=== PATIENT | male | born 1960 | race African-American/Black ===

== ENCOUNTER 2020-12-16 06:08 | Inpatient (IN) | payer MEDICAID ==
[2020-12-16] VITALS (50 sets, daily range): BP systolic 78–148; BP diastolic 49–112
[~2020-12-16] VITALS: Ht 182.9 cm; Wt 83.5 kg
--- NOTE | ~2020-12-16 | HEMODYNAMI ---
PATIENT:RAHUL ENGLE JR MEDICAL RECORD: [id number] : 58 LOCATION:[facility] [address] [facility]# [id number] ADMISSION DATE: 12/16/20 Generatedon:114:30 Patient name: RAHUL ENGLE Patient #: [id number] SSN: [id number] : 1960 Date of study: 12/19/2020 Page: Of Hemodynamic Procedure Report Patient Data Patient Demographics Procedure consent was obtained First Name: RAHUL Gender: Male Last Name: KADIE Suffix: Patient #: [id number] : 1960 Age: 60 year(s) SSN: [id number] Race: Black Additional ID: [id number] Contact details [address]: [address] [place] [address] [place] State: [place] City: [place] Zip code: [address] Past Medical History Allergies: No known allergies Admission Admission Data Admission Date: 12/16/2020 Admission Time: 7:19 Arrival Date: 12/19/2020 Arrival Time: 0:00 Admit Source: Other Insurance Payor: Medicaid Room #: D.2112 [facility] #: [id number] Height (in.): 72 BSA: 2.06 (m2) Height (cm.): 182.88 BMI: 25.12 (kg/m2) Weight (lbs.): 185.19 Weight (kg.): 84 Lab Results Lab Result Date: 12/19/2020 Lab Result Time: 0:00 Biochemistry Name Units Result Min Max BUN mg/dl 11 --(-*--)-- 7 18 CK-MB ng/ml 6.8 --(----)-* 0 3.6 Creatinine mg/dl 1.5 --(----)-* 0.6 1.3 eGFR ml/min 51 *-(----)-- 90 120 NONAFRICAN Troponin l ng/ml 2.11 --(----)-* 0 0.06 CBC Name Units Result Min Max Hematocrit % 37.7 *-(----)-- 42 54 Hemoglobin g/dl 11.9 *-(----)-- 13.5 17.5 Procedure Procedure Types Cath Procedure Sedation Charges Moderate Sedation 10-24 minutes PCI Procedure Coronary Stent Coronary Stent Initial Hemochron ACT Test Procedure Description Procedure Date Procedure Date: 12/19/2020 Procedure Start Time: 14:06 Procedure End Time: 14:29 Procedure Staff Name Function Hunter Tian MD Performing Physician Trinity Cortez RT Monitor Fredy Phan RN Nurse Domonique Caceres RT Scrub Procedure Data Cath Procedure Fluoroscopy Diagnostic fluoroscopy Total fluoroscopy Time: 5.6 time: 5.6 min min Diagnostic fluoroscopy Total fluoroscopy dose: 461 dose: 461 mGy mGy Contrast Material Contrast Material Type Amount (ml) Isovue 370 62 Entry Location Entry Primary Successful Side Size Upsize Upsize Entry Closure Succes sful Closure Location (Fr) 1 (Fr) 2 (Fr) Remarks Device Remarks Femoral Right 6 Fr Exoseal artery Short Estimated blood loss: 10 ml Procedure Complications No complications Procedure Medications Medication Administration Route Dosage 0.9% NaCl I.V. 100 ml/hr Oxygen etCO2 Nasal cannula 2 l/min Heparin Flush Bag added to field 2 bags (1000units/500ml NS) Lidocaine 2% added to field 20 Versed I.V. 2 mg Fentanyl I.V. 50 mcg Heparin Bolus I.V. 5000 units Hemodynamics Rest BSA: 2.06 (m2) HGB: 11.9 (g/dl) O2 Consumption: Estimated: 251.63 (ml/min) O2 Co nsumption indexed: Estimated:122.15 (ml/min/m) Heart Rate: 83 (bpm) Snapshots Pre Cath Intra NCS Post Cath Vital Signs Time Heart Resp SPO2 etCO2 NIBP (mmHg) Rhythm Pain Sedation Rate (ipm) (%) (mmHg) Status Level (bpm) 13:55:47 81 17 97 31.2 109/76(98) NSR 0 (11) 10(A) , No pain 13:59:30 103 21 97 28.2 119/92(104) NSR 0 (11) 10(A) , No pain 14:03:13 102 23 99 32.7 120/94(106) NSR 0 (11) 10(A) , No pain 14:07:05 76 21 99 29.7 106/74(97) NSR 0 (11) 10(A) , No pain 14:10:50 82 26 98 23.8 115/82(94) NSR 0 (11) 10(A) , No pain 14:15:02 80 29 98 12.6 115/83(96) NSR 0 (11) 10(A) , No pain 14:18:51 83 29 100 32.7 101/80(92) NSR 0 (11) 10(A) , No pain 14:23:01 78 16 100 31.2 111/86(97) NSR 0 (11) 10(A) , No pain 14:26:49 77 26 100 22.3 108/79(89) NSR 0 (11) 10(A) , No pain 14:30:36 78 35 100 25.2 102/80(86) NSR 0 (11) 10(A) , No pain Medications Time Medication Route Dose Verified Delivered Reason Notes Effectiveness by by 13:57:22 0.9% NaCl I.V. 100 Fredy Fredy Per physician ml/hr Emilie Phan RN RN 13:57:31 Oxygen etCO2 2 Fredy Fredy for low 02 sats Nasal l/min Emilie Phan cannula RN RN 13:57:43 Heparin Flush added 2 Fredy Fredy used for Bag to bags Emilie Phan procedure (1000units/500ml RN RN NS) 13:57:52 Lidocaine 2% added 20ml Fredy Fredy for local to vial Emilie Phan anesthetic field HOLLAND RN 14:07:02 Versed I.V. 2 mg Fredy Fredy for sedation Emilie Phan RN RN 14:07:09 Fentanyl I.V. 50 Fredy Fredy for sedation mcg Emilie Phan RN RN 14:12:18 Heparin Bolus I.V. 5000 Fredy Fredy for units Emilie Phan anticoagulation RN piler Log Time Note 13:27:08 Patient Height : 72 inches 13:27:08 Patient Weight : 185.19 lbs 13:31:58 Diagnostic Cath Status : Urgent 13:35:33 Lab Result : Troponin l 2.11 ng/ml 13:35:33 Lab Result : eGFR NONAFRICAN 51 ml/min 13:35:33 Lab Result : Hemoglobin 11.9 g/dl 13:35:33 Lab Result : BUN 11 mg/dl 13:35:33 Lab Result : Creatinine 1.5 mg/dl 13:35:33 Lab Result : CK-MB 6.8 ng/ml 13:35:33 Lab Result : Hematocrit 37.7 % 13:35:40 Arrival Date: 12/19/2020 12:00:00 AM 13:35:41 Admit Source: Other 13:35:53 Insurance Payor : Medicaid 13:37:04 ACC Patient presents with Non-STEMI CCS Anginal Class 2--Slight limitation of ordinary activity. 13:37:09 Time tracking: Regular hours (M-F 7:00 - 5:00) 13:37:14 Plan of Care:Hemodynamics will remain stable., Cardiac rhythm will remain stable., Comfort level will be maintained., Respiratory function will remain adequate., Patient/ family verbilizes understanding of procedure., Procedure tolerated without complication., Recovers from procedure without complications.. 13:38:00 Domonique Caceres RT(R) sent for patient. Start room use. 13:40:16 H&P Date Dictated: 12/16/2020 Within 30 days and on chart.. 13:40:17 Pre-procedure instructions explained to patient. 13:40:18 Pre-op teaching completed and patient verbalized understanding. 13:40:19 Family unavailable. 13:40:21 Patient NPO since Midnight. 13:40:30 Patient allergic to No known allergies 13:40:36 Lab results completed and on chart. 13:40:40 Stress Test: no; N/A ? 13:40:44 Alarms reviewed by R. N. 13:40:45 Sharps counted by scrub and verified by R.N. 13:42:21 Patient received from Med II to CCL 2 Alert and oriented. Tansferred to table in Supine position. 13:42:25 Signed procedure consent form obtained from patient. 13:42:26 Warm blankets applied, and edgar hugger turned on for patient comfort. 13:42:26 Correct patient and procedure confirmed by team. 13:42:27 ECG and BP/O2 sat monitors applied to patient. 13:42:28 Full Disclosure recording started 13:42:33 Is the patient allergic to Iodine/contrast media? No. 13:42:34 Was the patient premedicated? Yes 13:43:09 Procedure Status PCI. 13:53:12 Is patient on blood thinner?Yes 13:53:21 ACC The patient was administered the following blood thiners within the last 24 hours: ACCPlavix 13:53:24 Patient diabetic? No. 13:53:26 If diabetic: On Metformin? N/A 13:53:27 ----Pre-sedation anethsthesia assessment.---- 13:53:36 Previous problem with sedation/anesthesia? No ? 13:53:38 Snore? No 13:53:39 Sleep apnea? No 13:53:41 Deviated septum? No 13:53:42 Opens mouth fully? Yes 13:53:43 Sticks out tongue? Yes 13:53:53 Airway obstruction? No ? 13:53:55 Dentures? No ? 13:54:01 Pre procedure: right dorsailis pedis pulse 2+ Normal; easily identifiable; not easily obliterated 13:54:03 Patient pain scale 0/10 ?. 13:54:08 IV patent on arrival in left antecubital with 0.9% NaCl at [facility]. 13:54:13 Right groin area was prepped with chlora-prep and draped in sterile fashion 13:54:16 Use device set Femoral Dx 13:54:17 ACIST Syringe (94170) opened to sterile field. 13:54:18 Bag Decanter (2002S) opened to sterile field. 13:54:19 Medline Cath Pack ([id number]) opened to sterile field. 13:54:20 ACIST Hand Control (92791) opened to sterile field. 13:54:20 ACIST Manifold (39270) opened to sterile field. 13:54:22 Tegaderm 4 x 4 (1626W) opened to sterile field. 13:54:23 EMERALD Guide Wire (532-652) opened to sterile field. 13:54:26 Use device set WICHO PCI 13:54:28 INFLATOR Merit BasixCompak (TC0667) opened to sterile field. 13:54:30 SHEATH 6FR Datto (MGJ781) opened to sterile field. 13:54:56 Peabody OmniWire (41610) opened to sterile field. 13:55:01 Vital chart was started 13:55:05 Baseline sample Acquired. 13:55:19 Rhythm: atrial fibrillation 13:57:22 0.9% NaCl 100 ml/hr I.V. was administered by Fredy Phan RN; Per physician; Verbal order read back and verified. 13:57:31 Oxygen 2 l/min etCO2 Nasal cannula was administered by Fredy Phan RN; for low 02 sats; Verbal order read back and verified. 13:57:43 Heparin Flush Bag (1000units/500ml NS) 2 bags added to field was administered by Fredy Phan RN; used for procedure; Verbal order read back and verified. 13:57:52 Lidocaine 2% 20ml vial added to field was administered by Fredy Phan RN; for local anesthetic; Verbal order read back and verified. 14:00:00 --------ALL STOP TIME OUT------ 14:00:01 Final Timeout: patient, procedure, and site verified with staff and physician. All members of the team are in agreement. 14:00:02 Right groin site verified by team. 14:00:03 Fire Safety Assessment: A--An alcohol-based skin anteseptic being used preoperatively., C--Open oxygen or nitrous oxide is being used., D--An ESU, laser, or fiber-optic light is being used. 14:00:04 Physical assessment completed. ASA score P 2 - A patient with mild systemic disease as per Hunter Tian MD. 14:00:05 2) 60-89 Mildly reduced kidney function, and other findings (as for stage 1) point to kidney disease. 14:00:06 Maximum allowable contrast dose (3.7 X eGFR X 0.75)142 ml. 14:00:07 Sedation plan: IV Moderate Sedation Medication:Versed, Fentanyl 14:06:07 Procedure started. 14:06:12 Local anesthetic to right femoral artery with Lidocaine 2% by Hunter Tian MD.INITIAL ACCESS ONLY 14:06:26 A 6 Fr Short sheath was inserted into the Right Femoral artery 14:06:55 Proceeding to intervention. 14:07:02 Versed 2 mg I.V. was administered by Fredy Phan RN; for sedation; Verbal order read back and verified. 14:07:09 Fentanyl 50 mcg I.V. was administered by Fredy Phan RN; for sedation; Verbal order read back and verified. 14:07:30 GUIDE 6FR XBLAD 3.5 catheter ([id number]) opened to sterile field. 14:08:10 6 Fr XBLAD 3.5 guide catheter was inserted over the wire 14:10:03 UNABLE TO ENGAGE WITH XBLAD 3.5 CHANGING GUIDES.. 14:10:33 Catheter removed. 14:10:43 GUIDE 6FR XBLAD 4.0 catheter ([id number]) opened to sterile field. 14:11:24 Pre PCI Site: [place] Ramus has 80% stenosis. 14:11:49 Zero performed for pressure channel P1 14:12:18 Heparin Bolus 5000 units I.V. was administered by Fredy Phan RN; for anticoagulation; Verbal order read back and verified. 14:12:32 Pressure wire advanced. 14:14:47 ACC Pre-intervention KELLEN Flow is 3. 14:14:57 Wire advanced across lesion. 14:17:06 Place stent Inflation Number: 1 A IDRIS RX 2.75 x 26 stent ([id number]) was prepped and advanced across the Ramus1 80. The stent was deployed at 16 GLORIA for 0:20 (min:sec) . 14:17:59 Stent catheter was removed intact over wire. 14:20:06 Place stent Inflation Number: 1 A IDRIS RX 2.75 x 18 stent ([id number]) was prepped and advanced across the Ramus 80. The stent was deployed at 16 GLORIA for 0:30 (min:sec) . 14:20:52 Inflation number: 2 The stent balloon was then re-inflated across the Ramus1 to 10 GLORIA for 0:12 (min:sec) . 14:23:24 POST IFR OF THE RAMUS .97. 14:23:42 EXOSEAL 6Fr (EX600) opened to sterile field. 14:23:53 Stent catheter was removed intact over wire. 14:23:54 Wire removed. 14:23:54 Guide catheter removed. 14:24:48 Sheath removed intact; hemostasis achieved with Exoseal to the Right Femoral artery. 14:24:51 Procedure ended.(Physican Out) 14:24:59 Fluoroscopy time 05.60 minutes. 14:25:03 Flurop Dose total: 461 14:25:03 Fluoroscopy dose: 461 mGy 14:25:16 Dose Area Product 57453 mGy/cm. 14:25:20 Contrast amount:Isovue 370 62ml. 14:25:22 Maximum allowable dose exceeded? No. 14:25:23 Sharps counted by scrub and verified by R.N. 14:25:28 Post-op/insertion site Right Femoral artery dressed using a 4 x 4 and Tegaderm. 14:25:32 Post right femoral artery:stable, soft, clean and dry 14:25:34 Post Procedure Pulses reassessed and unchanged 14:25:36 Post procedure: right dorsailis pedis pulse 2+ Normal; easily identifiable; not easily obliterated. 14:25:38 Post-procedure physical assessment completed. ASA score P 2 - A patient with mild systemic disease as per Hunter Tian MD. 14:25:41 Post procedure rhythm: unchanged. 14:25:44 Estimated blood loss: 10 ml 14:25:45 Post procedure instruction explained to patient.Patient verbalizes understanding. 14:25:46 Patient needs reinforcement of post procedure teaching. 14:26:15 Procedure type changed to Cath procedure, Sedation Charges, Moderate Sedation 10-24 minutes, PCI procedure, Coronary Stent, Coronary Stent Initial, Hemochron ACT Test 14:28:33 ACT drawn and resulted at 208 seconds. (normal therapeutic range 180-240 seconds). 14:28:52 Procedure and supply charges have been captured, reviewed, submitted and are correct. 14:28:55 Procedure Complication : No complications 14:28:59 [facility] Findings: MVD- PCI performed (see procedure note) 14:29:02 Operative report dictated upon procedure completion. 14:29:02 See physician's report for complete and final results. 14:29:05 Report given to [facility]. 14:29:08 Patient transfered to [facility] with Bed. 14:29:10 Procedure ended. 14:29:10 Full Disclosure recording stopped 14:29:17 ACC-PCI Only Patient was given prescriptions, or instructed by Hunter Tian MD to start/continue the following medications upon discharge: Plavix 14:29:19 End room use (Document Last) 14:29:35 End room use (Document Last) 14:29:50 End room use (Document Last) 14:30:58 Vital chart was stopped Intervention Summary Intervention Notes Time ActionType Lesion and Equipment Used Action# Pressure Duration Attributes 14:17:[address] Place stent Ramus1 IDRIS RX 2.75 x 1 16 00:20 26 stent ([id number]) 14:20:06 Place stent Ramus IDRIS RX 2.75 x 1 16 00:30 18 stent ([id number]) 14:20:52 Reinflate Ramus1 IDRIS RX 2.75 x 2 10 00:12 stent 18 stent balloon ([id number]) Device Usage Item Name Manufacture Quantity Catalog Hospital Part [facility] Lot# / Number Charge Number Stock Stock Serial# Code ACIST Syringe Acist 1 73165 150041 930255 230586 20 (89011) Medical Systems Inc Bag Decanter Microtek 1 2001S 308521 08162 200397 5 (2001S) Medical Inc. Medline Cath Medline 1 [id number] 085906 23314 819342 5 Pack ([id number]) ACIST Hand Acist 1 61177 854411 283177 217177 5 Control Medical (86426) Systems Inc ACIST Manifold Acist 1 04146 060342 467789 921854 5 (19926) Medical Systems Inc Tegaderm 4 x 4 3M 1 1626W 536352 402680 766727 5 (1626W) EMERALD Guide Cardinal 1 502-455 495601 936045 037708 5 Wire (502-455) Health INFLATOR Merit Merit 1 GE5787 372386 117596 595324 15 [facility] (CO9134) SHEATH 6FR Terumo 1 KWC577 451866 012282 338675 40 Datto (EZS989) Peabody Peabody 1 5543715 572892 21740 9981 5 OmniWire (64041) GUIDE 6FR Cardinal 1 [id number] 087239 531522 319933 3 XBLAD 4.0 Health catheter ([id number]) IDRIS RX 2.75 x Medtronic 1 [id number] 634146 0709351 185997 5 [id number] 26 stent ([id number]) IDRIS RX 2.75 x Medtronic 1 [id number] 929700 3843164 024596 5 [id number] 18 stent ([id number]) EXOSEAL 6Fr Cardinal 1 EX600 747531 483761 328151 10 (EX600) Health GUIDE 6FR Cardinal 1 [id number] 908679 540087 505905 10 XBLAD 3.5 Health catheter ([id number]) Signature Audit [place]ogan Stage Time Signature Unsigned Intra-Procedure 12/19/2020 Trinity Cortez 2:29:35 PM RT(R) Intra-Procedure 12/19/2020 Fredy 2:29:50 PM Lorigan RN Intra-Procedure 12/19/2020 Hunter Buckley 2:30:56 PM Demario DELEON Signatures Performing Physician : Signature : Hunter Tian MD Date : Time : Monitor : Trinity Cortez Signature : RT Date : Time : Nurse : Fredy Velaigan Signature : RN Date : Time : [address] [address]
--- NOTE | ~2020-12-16 | HEMODYNAMI ---
PATIENT:RAHUL ENGLE JR MEDICAL RECORD: [id number] : 58 [address] [id number] ADMISSION DATE: 12/16/20 Generatedon:114:35 Patient name: RAHUL ENGLE Patient #: [id number] SSN: [id number] : 1960 Date of study: 12/17/2020 Page: Of Hemodynamic Procedure Report Patient Data Patient Demographics Procedure consent was obtained First Name: RAHUL Gender: Male Last Name: KADIE Suffix: Patient #: [id number] : 1960 Age: 60 year(s) SSN: [id number] Race: Black Additional ID: [id number] Contact details Address: [address] [place] [address] [place] State: [place] City: [place] Zip code: [address] Past Medical History Allergies: No known allergies Admission Admission Data Admission Date: 12/16/2020 Admission Time: 7:19 Room #: [facility] Height (in.): 72 BSA: 2.06 (m2) Height (cm.): 182.88 BMI: 25.12 (kg/m2) Weight (lbs.): 185.19 Weight (kg.): 84 Lab Results Lab Result Date: 12/17/2020 Lab Result Time: 0:00 Biochemistry Name Units Result Min Max BUN mg/dl 23 --(----)-* 7 18 Creatinine mg/dl 1.5 --(----)-* 0.6 1.3 eGFR ml/min 51 *-(----)-- 90 120 NONAFRICAN CBC Name Units Result Min Max Hematocrit % 37.3 *-(----)-- 42 54 Hemoglobin g/dl 12.1 *-(----)-- 13.5 17.5 Procedure Procedure Types Cath Procedure Diagnostic Procedure [facility] w/Coronaries Sedation Charges Moderate Sedation 25-39 minutes PCI Procedure Coronary Stent Coronary Stent Initial Hemochron ACT Test Procedure Description Procedure Date Procedure Date: 12/17/2020 Procedure Start Time: 13:55 Procedure End Time: 14:34 Procedure Staff Name Function Hunter Tian MD Performing Physician Ramona Padilla RN Nurse Daniella Vásquez RT Monitor Elizabeth Dobson RT Scrub Germeias Fung RN Nurse Procedure Data Cath Procedure Fluoroscopy Diagnostic fluoroscopy Total fluoroscopy Time: 11 time: 11 min min Diagnostic fluoroscopy Total fluoroscopy dose: dose: 1259 mGy 1259 mGy Contrast Material Contrast Material Type Amount (ml) Isovue 300 144 Entry Location Entry Primary Successful Side Size Upsize Upsize Entry Closure Toribio ccessful Closure Location (Fr) 1 (Fr) 2 (Fr) Remarks Device Remarks Radial Right 6 Fr Mechanical artery Short Compression Estimated blood loss: 10 ml Diagnostic catheters Device Type Used For End Catheter Placement DIAGNOSTIC Ione 110cm 5 Procedure Fr catheter ([id number]) Procedure Complications No complications Procedure Medications Medication Administration Route Dosage 0.9% NaCl I.V. 100 ml/hr Heparin Flush Bag added to field 2 bags (1000units/500ml NS) Lidocaine 2% added to field 20 Oxygen NC 3 l/min Radial Cocktail added to field 1 syringe (Verapamil 2mg/Nitro 400mcg/Heparin 1500units) Versed I.V. 1 mg Fentanyl I.V. 50 mcg Heparin Bolus I.V. 5000 units Integrilin (Bolus I.V. 7.3 ml 2mg/ml) Integrilin (Bolus wasted 2.7 ml 2mg/ml) Dobutamine I.V. drip 5 mcg/kg/min (500mg/250ml D5W) Plavix P.O. 600 mg Hemodynamics Rest BSA: 2.06 (m2) HGB: 12.1 (g/dl) O2 Consumption: Estimated: 253.1 (ml/min) O2 Con sumption indexed: Estimated:122.86 (ml/min/m) Heart Rate: 85 (bpm) Pressure Samples Time Site Value (mmHg) Purpose Heart Use Rate(bpm) 13:55 AO 92/10(38) Snapshot 91 Snapshots Pre Cath Intra NCS Post Cath Vital Signs Time Heart Resp SPO2 etCO2 NIBP (mmHg) Rhythm Pain Sedation Rate (ipm) (%) (mmHg) Status Level (bpm) 13:25:52 90 45 100 11.9 94/28(75) NSR 0 (11) 10(A) , No pain 13:30:39 85 19 100 0 112/87(101) NSR 0 (11) 10(A) , No pain 13:34:49 90 41 97 10.4 113/69(102) NSR 0 (11) 10(A) , No pain 13:39:44 89 29 100 0 111/84(97) NSR 0 (11) 10(A) , No pain 13:43:50 89 35 90 14.9 128/80(95) NSR 0 (11) 10(A) , No pain 13:47:58 84 34 98 0 101/76(88) NSR 0 (11) 10(A) , No pain 13:51:59 81 25 98 16.4 102/80(87) NSR 0 (11) 10(A) , No pain 13:56:01 85 33 80 11.2 106/76(90) NSR 0 (11) 9(A) , No pain 14:00:19 81 36 99 12.7 95/37(67) NSR 0 (11) 9(A) , No pain 14:04:15 91 38 90 2.2 103/91(98) NSR 0 (11) 9(A) , No pain 14:08:18 82 27 99 0 105/79(88) NSR 0 (11) 9(A) , No pain 14:12:22 88 39 90 5.9 108/76(101) NSR 0 (11) 9(A) , No pain 14:16:28 83 35 99 0 96/74(88) NSR 0 (11) 9(A) , No pain 14:20:23 82 34 97 5.9 113/88(104) NSR 0 (11) 9(A) , No pain 14:24:25 80 14 100 0 115/89(99) NSR 0 (11) 9(A) , No pain 14:28:33 79 21 95 15.7 105/77(91) NSR 0 (11) 9(A) , No pain 14:31:45 82 25 99 17.2 106/86(93) NSR 0 (11) 9(A) , No pain Medications Time Medication Route Dose Verified Delivered Reason Notes Effectiveness by by 13:24:51 0.9% NaCl I.V. 100 ml/hr Ramona Greene used for Valerie Valerie cleaning matron RN 13:25:02 Heparin Flush added 2 bags Ramona Ramona used for Bag to Sprague Valerie procedure (1000units/500ml field RN RN NS) 13:25:15 Lidocaine 2% added 20ml vial Ramona Ramona for local to Valerie Valerie anesthetic field RN RN 13:25:24 Oxygen NC 3 l/min Ramona Ramona for low 02 sats Valerie Valerie HOLLAND RN 13:41:47 Radial Cocktail added 1 syringe Hunter Ramona for (Verapamil to [facility] vasodilation 2mg/Nitro field MD HOLLAND 400mcg/Heparin 1500units) 13:54:50 Versed I.V. 1 mg Hunter Ramona for sedation St Demario Padilla MD, RN 13:54:57 Fentanyl I.V. 50 mcg Hunter Greene for sedation St Demario Padilla MD, RN 14:02:01 Heparin Bolus I.V. 5000 units Hunter Greene Per physician verified [place] Valerie with dr MD HOLLAND [place] 14:05:26 Integrilin I.V. 7.3 ml Hunter Ramona for (Bolus 2mg/ml) St Demario Padilla antiplatelet MD HOLLAND therapy 14:05:45 Integrilin wasted 2.7 ml Hunter Ramona to sharp's (Bolus 2mg/ml) St Demario Padilla MD, RN 14:09:58 Dobutamine I.V. 5 Hunter Ramona Per physician (500mg/250ml drip mcg/kg/min St Demario Padilla D5W) MD HOLLAND 14:32:59 Plavix P.O. 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 12:48:15 Time tracking: Regular hours (M-F 7:00 - 5:00) 12:48:19 Plan of Care:Hemodynamics will remain stable., Cardiac rhythm will remain stable., Comfort level will be maintained., Respiratory function will remain adequate., Patient/ family verbilizes understanding of procedure., Procedure tolerated without complication., Recovers from procedure without complications.. 12:48:30 H&P Date Dictated: 12/17/2020 ER History on chart.. 12:48:38 Patient allergic to No known allergies 12:48:55 Is patient on blood thinner?Yes. last dose on the 4th 12:50:33 Lab Result : BUN 23 mg/dl 12:50:33 Lab Result : eGFR NONAFRICAN 51 ml/min 12:50:33 Lab Result : Creatinine 1.5 mg/dl 12:50:33 Lab Result : Hemoglobin 12.1 g/dl 12:50:33 Lab Result : Hematocrit 37.3 % 13:00:48 Elizabeth Dobson RT(R) sent for patient. Start room use. 13:16:33 Patient received from Med II to CCL 1 Alert and oriented. Tansferred to table in Supine position. 13:16:35 Warm blankets applied, and edgar hugger turned on for patient comfort. 13:16:35 Correct patient and procedure confirmed by team. 13:16:36 ECG and BP/O2 sat monitors applied to patient. 13:24:36 Vital chart was started 13:24:51 0.9% NaCl 100 ml/hr I.V. was administered by Ramona Padilla RN; used for procedure; Verbal order read back and verified. 13:25:02 Heparin Flush Bag (1000units/500ml NS) 2 bags added to field was administered by Ramona Padilla RN; used for procedure; Verbal order read back and verified. 13:25:15 Lidocaine 2% 20ml vial added to field was administered by Ramona Padilla RN; for local anesthetic; Verbal order read back and verified. 13:25:24 Oxygen 3 l/min NC was administered by Ramona Padilla RN; for low 02 sats; Verbal order read back and verified. 13:27:31 Baseline sample Acquired. 13:27:35 Rhythm: sinus rhythm 13:27:36 Full Disclosure recording started 13::36 Pre-procedure instructions explained to patient. 13:27:36 Pre-op teaching completed and patient verbalized understanding. 13:27:39 Family unavailable. 13:27:41 Patient NPO since Midnight. 13:28:46 Patient diabetic? No. 13:28:50 Previous problem with sedation/anesthesia? No ? 13:28:52 Snore? No 13:28:53 Sleep apnea? No 13:28:54 Deviated septum? No 13:28:56 Opens mouth fully? Yes 13:28:56 Sticks out tongue? Yes 13:41:47 Radial Cocktail (Verapamil 2mg/Nitro 400mcg/Heparin 1500units) 1 syringe added to field was administered by Ramona Padilla RN; for vasodilation; Verbal order read back and verified. 13:53:00 Airway obstruction? No ? 13:53:12 Dentures? No ? 13:53:14 Pre procedure: right dorsailis pedis pulse 1+ Palpable, but thready & weak; easily obliterated 13:53:15 Modified Yosvany's test Ulnar < 7 seconds 13:53:19 Patient pain scale 0/10 SOB. 13:53:50 Lab results completed and on chart. 13:53:53 Right Radial & Right Groin area was prepped with betadine and draped in sterile fashion 13:53:55 Alarms reviewed by R. N. 13:53:55 Sharps counted by scrub and verified by R.N. 13:53:56 --------ALL STOP TIME OUT------ 13:53:57 Final Timeout: patient, procedure, and site verified with staff and physician. All members of the team are in agreement. 13:53:58 Right Radial & Right Groin site verified by team. 13:54:01 Fire Safety Assessment: A--An alcohol-based skin anteseptic being used preoperatively., C--Open oxygen or nitrous oxide is being used., D--An ESU, laser, or fiber-optic light is being used. 13:54:04 Physical assessment completed. ASA score P 3 - A patient with severe systemic disease as per Hunter Tian MD. 13:54:08 3a) 45-59 Moderately reduced kidney function. 13:54:11 Maximum allowable contrast dose (3.7 X eGFR X 0.75)142 ml. 13:54:17 Sedation plan: IV Moderate Sedation Medication:Versed, Fentanyl 13:54:50 Versed 1 mg I.V. was administered by Ramona Padilla RN; for sedation; Verbal order read back and verified. 13:54:54 Use device set Radial Dx or PCI 13:54:55 ACIST Syringe (82123) opened to sterile field. 13:54:56 Bag Decanter () opened to sterile field. 13:54:57 Fentanyl 50 mcg I.V. was administered by Ramona Padilla RN; for sedation; Verbal order read back and verified. 13:54:57 ACIST Hand Control (12634) opened to sterile field. 13:54:57 ACIST Manifold (04857) opened to sterile field. 13:54:58 Tegaderm 4 x 4 (1626W) opened to sterile field. 13:55:21 Medline Cath Pack ([id number]) opened to sterile field. 13:55:28 MBrace Wrist Support ([id number]) opened to sterile field. 13:55:29 SHEATH 6FR RAIN (9181559) opened to sterile field. 13:55:30 EMERALD Guide Wire (027-311) opened to sterile field. 13:55:35 Procedure started. 13:55:44 Local anesthetic to right radial artery with Lidocaine 2% by Hunter Tian MD.INITIAL ACCESS ONLY 13:55:50 A 6 Fr Short sheath was inserted into the Right Radial artery 13:56:06 A DIAGNOSTIC Ione 110cm 5 Fr catheter (877352) was advanced over the wire and used for Procedure. 13:56:26 LV gram done using PINO 13:56:32 Injector settings: Ml/sec: 5, Volume: 15, 13:56:33 LV hemodynamics recorded. 13:56:37 EF : 10 % 13:58:00 RCA angiography performed. 13:58:30 LCA angiography performed. 13:58:34 Catheter exchanged over wire. 13:58:59 Proceeding to intervention. 13:59:20 GUIDE 6FR XBLAD 3.5 catheter ([id number]) opened to sterile field. 14:00:25 INFLATOR Merit BasixCompak (EN5407) opened to sterile field. 14:00:31 BMW 300cm Straight [place] 2 wire ([id number]) opened to sterile field. 14:02:01 Heparin Bolus 5000 units I.V. was administered by Ramona Padilla RN; Per physician; verified with dr tian Verbal order read back and verified. 14:03:05 6 Fr XBLAD 3.5 guide catheter was inserted over the wire 14:05:26 Integrilin (Bolus 2mg/ml) 7.3 ml I.V. was administered by Ramona Padilla RN; for antiplatelet therapy; Verbal order read back and verified. 14:05:45 Integrilin (Bolus 2mg/ml) 2.7 ml wasted was administered by Ramona Padilla RN; to sharp's; Verbal order read back and verified. 14:07:12 BMW 300 wire advanced. 14:09:10 ACC Pre-intervention KELLEN Flow is 3. 14:09:19 Pre PCI Site: [place] LAD has 80% stenosis. 14:09:58 Dobutamine (500mg/250ml D5W) 5 mcg/kg/min I.V. drip was administered by Ramona Padilla RN; Per physician; Verbal order read back and verified. 14:10:00 Wire advanced across lesion. 14:10:49 Inflate balloon Inflation number: 1 A EMERGE OTW 3.0 x 15 balloon ([id number]) was prepped and advanced across the Mid LAD , then inflated to 14 GLORIA for 0:00 (min:sec) . 14:11:23 Balloon removed over the wire. 14:14:41 Place stent Inflation Number: 1 A IDRIS OTW 3.0 x 12 stent ([id number]) was prepped and advanced across the Dist LAD . The stent was deployed at 14 GLORIA for 0:00 (min:sec) . 14:14:45 Stent catheter was removed intact over wire. 14:17:16 Place stent Inflation Number: 2 A IDRIS RX 3.5 x 18 stent ([id number]) was prepped and advanced across the Mid LAD . The stent was deployed at 14 GLORIA for 0:00 (min:sec) . 14:17:47 Inflation number: 3 The stent balloon was then re-inflated across the Mid LAD to 8 GLORIA for 0:00 (min:sec) . 14:18:29 Inflation number: 4 The stent balloon was then re-inflated across the Mid LAD to 14 GLORIA for 0:00 (min:sec) . 14:18:31 Stent catheter was removed intact over wire. 14:21:31 Place stent Inflation Number: 5 A IDRIS OTW 3.0 x 22 stent ([id number]) was prepped and advanced across the Mid LAD . The stent was deployed at 16 GLORIA for 0:00 (min:sec) . 14:22:26 Inflation number: 6 The stent balloon was then re-inflated across the Mid LAD to 16 GLORIA for 0:00 (min:sec) . 14::54 Stent catheter was removed intact over wire. 14:25:38 Place stent Inflation Number: 1 A IDRIS OTW 3.5 x 22 stent ([id number]) was prepped and advanced across the Prox LAD . The stent was deployed at 14 GLORIA for 0:00 (min:sec) . 14::51 Stent catheter was removed intact over wire. 14:: Wire removed. 14::42 Guide catheter removed. 14:26:55 ZEPHYR REGULAR TR BAND ([id number]) opened to sterile field. 14:27:37 Sheath removed intact; hemostasis achieved with Mechanical Compression to the Right Radial artery. 14:27:41 Procedure ended.(Physican Out) 14:27:52 Contrast amount:Isovue 300 144ml. 14:27:54 Maximum allowable dose exceeded? Yes. 14:28:00 Fluoroscopy time 11.00 minutes. 14:28:04 Flurop Dose total: 1259 14:28:04 Fluoroscopy dose: 1259 mGy 14:28:10 Dose Area Product 95280 mGy/cm. 14:28:13 Sharps counted by scrub and verified by R.N. 14:28:16 [place] band inflated with 10cc of air. 14:28:25 Post-procedure physical assessment completed. ASA score P 3 - A patient with severe systemic disease as per Hunter Tian MD. 14:28:28 Post procedure rhythm: sinus rhythm 14:28:30 Estimated blood loss: 10 ml 14:28:32 Post procedure instruction explained to patient.Patient verbalizes understanding. 14:28:32 Patient needs reinforcement of post procedure teaching. 14:29:33 Procedure type changed to Cath procedure, Diagnostic procedure, LHC, [facility] w/Coronaries, Sedation Charges, Moderate Sedation 25-39 minutes, PCI procedure, Coronary Stent, Coronary Stent Initial, Hemochron ACT Test 14:30:25 Procedure and supply charges have been captured, reviewed, submitted and are correct. 14:30:30 Procedure Complication : No complications 14:30:33 Vital chart was stopped 14:30:34 [facility] Findings: MVD- PCI performed (see procedure note) 14:30:36 Operative report dictated upon procedure completion. 14:30:36 See physician's report for complete and final results. 14:30:39 Report given to [facility] II. 14:30:41 Patient transfered to [facility] with Bed. 14:31:38 ACT drawn and resulted at 221 seconds. (normal therapeutic range 180-240 seconds). 14:32:59 Plavix 600 mg P.O. was administered by Ramona Padilla RN; for anticoagulation; Verbal order read back and verified. 14:34:12 ACC-PCI Only Patient was given prescriptions, or instructed by Hunter Tian MD to start/continue the following medications upon discharge: Plavix 14:34:15 Procedure ended. 14:34:15 Full Disclosure recording stopped 14:34:19 End room use (Document Last) 14:34:19 End room use (Document Last) 14:34:37 End room use (Document Last) Intervention Summary Intervention Notes Time ActionType Lesion and Equipment Used Action# Pressure Duration Attributes 14:10:49 Inflate Mid LAD EMERGE OTW 3.0 1 14 00:00 balloon x 15 balloon ([id number]) 14:14:41 Place stent Dist LAD IDRIS OTW 3.0 x 1 14 00:00 12 stent ([id number]) 14:17:16 Place stent Mid LAD IDRIS RX 3.5 x 2 14 00:00 18 stent ([id number]) 14:17:47 Reinflate Mid LAD IDRIS RX 3.5 x 3 8 00:00 stent 18 stent balloon ([id number]) 14:18:29 Reinflate Mid LAD IDRIS RX 3.5 x 4 14 00:00 stent 18 stent balloon ([id number]) 14:21:31 Place stent Mid LAD IDRIS OTW 3.0 x 5 16 00:00 22 stent ([id number]) 14:22:26 Reinflate Mid LAD IDRIS OTW 3.0 x 6 16 00:00 stent 22 stent balloon ([id number]) 14:25:38 Place stent Prox LAD IDRIS OTW 3.5 x 1 14 00:00 22 stent ([id number]) Device Usage Item Name Manufacture Quantity Catalog Number Hospital Part Current Minimal Lot# / Charge Number Stock Stock Serial# Code ACIST Syringe Acist 1 98525 348366 925745 837478 20 (94802) Medical Systems Inc Bag Decanter Microtek 1 2001S 612612 42462 801252 5 (2001S) Medical Inc. ACIST Hand Acist 1 72602 687512 831086 977367 5 Control Medical (00835) Systems Inc ACIST Manifold Acist 1 54850 231757 335855 342608 5 (67366) Medical Systems Inc Tegaderm 4 x 4 3M 1 1626W 936002 116822 080829 5 (1626W) Medline Cath Medline 1 [id number] 309547 39294 662000 5 Pack ([id number]) MBrace Wrist Advanced 1 140-0250-00 641475 99991 970770 5 Support Vascular (725776375) Dynamics SHEATH 6FR Cardinal 1 8253766 030182 9970865 505749 5 RAIN (4637714) Health EMERALD Guide Cardinal 1 502-455 145569 378015 240214 5 Wire (155-442) Health DIAGNOSTIC Terumo 1 40-6632 358820 617036 599448 5 Ione 110cm 5 Fr catheter (533630) GUIDE 6FR Cardinal 1 44292703 319704 207892 500279 10 XBLAD 3.5 Health catheter (01568414) INFLATOR Merit Merit 1 RM7055 045749 076931 578080 15 [facility] Medical (HM2385) BMW 300cm [place] 1 0876523 572612 997536 080685 5 Straight Vascular [place] 2 wire (9374423) EMERGE OTW 3.0 [place] 1 [id number] 062940 582328 132052 5 [id number] x 15 balloon Scientific ([id number]) IDRIS OTW 3.0 x Medtronic 1 [id number] 997798 7254145 836445 5 [id number] 12 stent ([id number]) IDRIS RX 3.5 x Medtronic 1 [id number] 915557 4873222 602915 5 [id number] 18 stent ([id number]) IDRIS OTW 3.0 x Medtronic 1 [id number] 536665 5495617 082018 5 [id number] 22 stent ([id number]) IDRIS OTW 3.5 x Medtronic 1 [id number] 051911 2704352 605261 5 [id number] 22 stent ([id number]) ZEPHYR REGULAR Cardinal 1 019252 543829 8080836 633493 5 TR [facility] (801570) Signature Audit Burt Stage Time Signature Unsigned Intra-Procedure 12/17/2020 Daniella Vásquez 2:34:37 PM RT(R) Intra-Procedure 12/17/2020 Geremias Fung 2:34:58 PM RN Intra-Procedure 12/17/2020 Hunter Buckley 2:35:20 PM Demaroi [facility] [address] [place] [address]
[~2020-12-16 06:08] MED LIST: CARDIZEM60 MG PO; COREG 3.1253.125 MG PO; ELIQUIS5 MG PO; FUROSEMIDE20 MG PO
--- NOTE | 2020-12-16 06:41 | NUR ---
CODE SEPSIS PAGED
--- NOTE | 2020-12-16 06:43 | NUR ---
CODE SEPSIS CANCELLED BY DR BLACKBURN
[2020-12-16 06:55] LABS: CALC OSMOLALITY 275 mosm/kg (275-300); CALCIUM 9.2 mg/dL (8.5-10.1); CARBON DIOXIDE 23.8 mmol/L (21.0-32.0); CHLORIDE - SERUM 101 mmol/L (98-107); CREATININE - SERUM 1.5 mg/dL (0.6-1.3); GLUCOSE 229 mg/dL (74-106); POTASSIUM - SERUM 4.3 mmol/L (3.5-5.1); SODIUM 135 mmol/L (136-145); UREA NITROGEN 11 mg/dL (7-18); eGFR NON AFRICAN AMERICAN 51 mL/min (90-120)
[2020-12-16 07:02] LABS: APTT 29.7 SECONDS (22.8-39.4); INR 1.34 (0.85-1.17); PROTIME 15.4 SECONDS (11.6-15.0)
[2020-12-16 07:07] LABS: BASOPHILS 0 % (0-2); EOSINOPHILS 0.1 % (0-7); HEMATOCRIT 37.7 % (42.0-54.0); HEMOGLOBIN 11.9 g/dL (13.5-17.5); IMMATURE GRANULOCYTES 0.3 % (0-5); LYMPHOCYTE ABS# 0.66 10x3/uL (1.32-3.57); LYMPHOCYTES 8.7 % (15-50); MCH 27.2 pg (26.0-34.0); MCHC 31.6 g/dL (31.0-37.0); MCV 86.1 fL (80.0-100.0); MEAN PLATELET VOLUME 10.8 fL (7.4-10.4); MONOCYTES 4.1 % (2-11); NEUTROPHIL ABS# 6.57 10x3/uL (1.78-5.38); NEUTROPHILS 86.8 % (40-80); PLATELET COUNT 235 10x3/uL (130-400); RBC 4.38 10x6/uL (4.20-6.10); WBC 7.6 10x3/uL (4.8-10.8)
[2020-12-16 07:16] LABS: ALBUMIN 3.1 g/dL (3.4-5.0); ALKALINE PHOSPHATASE 122 U/L (30-120); ALT (SGPT) 16 U/L (10-68); BILIRUBIN - TOTAL 2.29 mg/dL (0.2-1.3); CKMB 6.8 U/L (0.0-3.6); CREATINE KINASE 145 UL (21-232); PRO BNP 3079 pg/mL (0-125); PROTEIN - SERUM 7.9 g/dL (6.4-8.2)
[2020-12-16 10:17] LABS: CHOL - HDL RATIO 2.7 ratio (2.3-4.9); LDL-HDL RATIO 1.5 ratio (1.5-3.5)
--- NOTE | 2020-12-16 13:00 | NUR ---
RECEIVED PT TO ICU 5 VIA STRECTHER FROM ER, PT ALERT AND ORIENTED, PT PLACED ON SENIOR SALES ADMINISTRATOR, SR NOTED, HR 79, BP 132/99, DENIES PAIN OR SOB AT THIS TIME, CALL LIGHT IN REACH, WILL MONITOR
--- NOTE | 2020-12-16 14:35 | NUR ---
PT SLEEPING AT THIS TIME
--- NOTE | 2020-12-16 16:30 | NUR ---
visitor at bedside
--- NOTE | 2020-12-16 17:22 | HP ---
PATIENT: RAHUL ENGLE MEDICAL RECORD: [id number] ACCOUNT: [id number] LOCATION:[facility]2305 : 58 ADMISSION DATE: 12/16/20 PCP: NISHI CALDERON MD HISTORY AND PHYSICAL EXAMINATION DATE OF ADMISSION: 12/16/2020 CHIEF COMPLAINT: Shortness of breath and chest pain. HISTORY: This is a 60-year-old -[place] male who woke up this morning at 03:00 with shortness of breath and chest pain. Denies fever, chills, nausea. No radiation of symptoms down either arm. No diaphoresis. He was admitted into the hospital in September of this year with paroxysmal atrial fibrillation. He has had no history of heart disease prior to that. Unfortunately, he did not follow up with cardiology as was recommended and he states he has no primary care provider. There is mention of him possibly being a [facility] patient, but the report was, he has not filled out any paperwork for that yet. We will ask case management to get involved with that. In the ER this morning, his basic metabolic panel was okay except creatinine a little high at 1.5, glucose little high at 229. Liver enzymes were okay except total bilirubin was elevated at 2.29. Troponin was elevated at 2.110. ProBNP 3079. Chest x-ray with mild interstitial edema and small left pleural effusion. He was admitted for further evaluation by cardiology. PAST MEDICAL HISTORY: Hypertension, atrial fibrillation. PAST SURGICAL HISTORY: He denies any. HOME MEDICATIONS: He states he has been taking the medicine that was prescribed when he was in earlier this year including Eliquis 5 mg twice a day, carvedilol 3.125 mg twice a day, diltiazem 120 mg twice a day, furosemide 20 mg once a day. FAMILY HISTORY: His father with heart failure. SOCIAL HISTORY: He is , but lives with his ex-. When asked if he work, he said he works for the [employer] at the [employer]. He also mentions [employer] service. REVIEW OF SYSTEMS: GENERAL: No major weight changes. HEENT: No particular sinus or allergy problems. RESPIRATORY: No history of emphysema, asthma or pneumonia. CARDIAC: See above history with paroxysmal atrial fibrillation from September of this year. GASTROINTESTINAL: Denies diarrhea, constipation, or heartburn. GENITOURINARY: No significant problems there. MUSCULOSKELETAL: No significant problems there. NEUROLOGIC: No migraines or seizures. PSYCHIATRIC: Denies depression or melancholia. PHYSICAL EXAMINATION: VITAL SIGNS: Temperature 95.7, heart rate 64, respirations 28, blood pressure is 80/58. GENERAL: He is awake and alert. He does not appear to be in distress. HISTORY AND PHYSICAL [id number] RAHUL ENGLE HEENT: Grossly within normal limits. NECK: Supple. No JVD or bruit. CARDIOVASCULAR: Regular rate and rhythm. No murmurs appreciated. LUNGS: Fairly clear. ABDOMEN: Soft, flat, nontender. EXTREMITIES: No edema. NEUROLOGIC: Unremarkable. LABORATORY DATA: CBC: White count 7600, hemoglobin 11.9, hematocrit 37.7. Basic metabolic panel: Sodium 135, potassium 4.3, chloride 101, CO2 23.8, BUN 11, creatinine 1.5, glucose 229, calcium 9.2, total bilirubin is 2.29. Other liver enzymes were all normal. INR 1.34. Troponin 2.110, proBNP 3079. DIAGNOSTIC DATA: Chest x-ray shows mild interstitial edema and small left pleural effusion. ASSESSMENT: 1. Non-ST elevated myocardial infarction. 2. History of cardiomyopathy. 3. Paroxysmal atrial fibrillation. PLAN: Cardiology has been consulted. He will be admitted to the ICU. Plan is for angiogram tomorrow. Other tests and procedures as warranted. We will ask case management to get involved to see about VA status, etc. TRANSINT:[id number] Voice Confirmation ID: [id number] DOCUMENT ID: [id number] KOREY LOPES MD at 1722 CC: [id number] DICTATION DATE: 12/16/20 1519 ANIME DESIGNER: 12/16/20 1551 ADM IN [facility] [address] [place] [address]
--- NOTE | 2020-12-16 21:44 | NUR ---
DOBUTAMINE DISCONTINUED DUE TO BP SUSTAINING. PATIENT HAS NO C/O PAIN OR S/S OF DISTRESS. Lashon GLEASON RN
--- NOTE | 2020-12-16 23:52 | NUR ---
2014- NO RETURN CALL FROM CARDIOLOGY REGARDING PATIENT ELEVATED BP. DR LOPES'S ONCALL NOTIFIED OF BP ELEVATION. DR CUNHA GAVE TELEPHONE ORDER FOR NITRO X 1 AND MORPHINE Q 2 FOR CHEST PAIN. NITRO ADMINISTERED, WILL CONTINUE TO MONITOR. Lashon GLEASON RN
[2020-12-17] VITALS (22 sets, daily range): BP systolic 108–142; BP diastolic 76–115; Ht 182.9 cm; Wt 83.5 kg
--- NOTE | 2020-12-17 04:52 | NUR ---
CHG BATH GIVEN AND AREA PREPPED FOR CARDIAC CATH. Lashon GLEASON RN
[2020-12-17 05:19] LABS: BASOPHILS 0 % (0-2); EOSINOPHILS 0.1 % (0-7); HEMATOCRIT 37.3 % (42.0-54.0); HEMOGLOBIN 12.1 g/dL (13.5-17.5); IMMATURE GRANULOCYTES 0.3 % (0-5); LYMPHOCYTES 11.5 % (15-50); MCH 26.9 pg (26.0-34.0); MCHC 32.4 g/dL (31.0-37.0); MEAN PLATELET VOLUME 11.3 fL (7.4-10.4); MONOCYTES 6.8 % (2-11); NEUTROPHIL ABS# 7.74 10x3/uL (1.78-5.38); NEUTROPHILS 81.3 % (40-80); PLATELET COUNT 242 10x3/uL (130-400); RDW 16.4 % (11.5-14.5); WBC 9.5 10x3/uL (4.8-10.8)
[2020-12-17 05:22] LABS: MCV 82.9 fL (80.0-100.0)
[2020-12-17 05:50] LABS: ANION GAP 15.5 mmol/L (8-16); CALCIUM 8.9 mg/dL (8.5-10.1); CARBON DIOXIDE 22.7 mmol/L (21.0-32.0); CREATININE - SERUM 1.5 mg/dL (0.6-1.3); PHOSPHOROUS 3.7 mg/dL (2.5-4.9); POTASSIUM - SERUM 4.2 mmol/L (3.5-5.1)
--- NOTE | 2020-12-17 07:20 | NUR ---
LAYING IN BED WATCHING TV, NO DISTRESS NOTED AND NO NEEDS VOICED, CALL LIGHT IN REACH, WILL MONITOR
--- NOTE | 2020-12-17 11:05 | NUR ---
REPORT CALLED TO MED 2 NURSE
--- NOTE | 2020-12-17 11:15 | NUR ---
PT TRANSFERRED TO 2111 VIA WHEELCHAIR, BELONGINGS SENT WITH PATIENT, NO DISTRESS NOTED AT THIS TIME
--- NOTE | 2020-12-17 11:25 | NUR ---
NURSE RECEIVED PATIENT FROM ICU VIA WHEELCHAIR. PATIENT WALKS FROM CHAIR TO BED. PATIENT IS AWAKE, ALERT AND ORIENTED. VITALS CHECKED, ORIENTED TO ROOM. CALL LIGHT IN REACH.
--- NOTE | 2020-12-17 12:49 | NUR ---
NURSE PREOPS PATIENT AT THIS TIME. PATIENT IS VERY WINDED, JUST SITTING UP TO SIP WATER WITH HIS VALIUM.
--- NOTE | 2020-12-17 13:24 | NUR ---
PATIENT IS GONE TO CENTRAL SERVICE SUPPLY DISTRIBUTOR
--- NOTE | 2020-12-17 14:57 | NUR ---
NURSE RECEIVED PATIENT BACK FROM HEART CATH. PATIENT IS ALERT ORIENTED AND FEELING NO PAIN HE STATES. NURSE CHECKS PATIENT'S PULSE ABOVE AND BELOW HIS RIGHT WRIST SITE WHERE THEY PLACED HIS BAND. VITALS ARE TO BE CHECKED PER PROTOCOL. SCDS HOOKED BACK UP. DOBUTAMINE DRIP GOING AT 5 /HOUR
--- NOTE | 2020-12-17 16:09 | NUR ---
PULSES FELT ABOVE AND BELOW SITE. REMOVED 1 CC AIR.
--- NOTE | 2020-12-17 16:30 | NUR ---
NURSE TURNS OFF DOBUTAMINE DRIP PER ORDER. PATIENT'S BP STILL REMAINS HIGH. PATIENT REMAINS PAIN FREE. NO BLEEDING NOTED. PULSES FELT TO ABOVE AND BELOW SITE.
--- NOTE | 2020-12-17 18:02 | NUR ---
NURSE REMOVED BAND FROM RIGHT WRIST. PULSES ARE PALPABLE TO UPPER AND LOWER OF SITE. 2X2 AND TEGADERM PLACED TO RIGHT WRIST SITE. VITALS CHECKED PATIENT'S BP IS STILL ELEVATED, BUT AFTER BEING ON A DOBUTAMINE DRIP. NURSE WILL CONTINUE TO MONITOR PATIENT.
--- NOTE | 2020-12-17 20:30 | NUR ---
PT IN BED, AAO X 3, RESP EVEN AND UNLABORED, NO DISTRESS NOTED, CL IN REACH, SR UP X 2.
[2020-12-18 04:00] VITALS: BP 127/94
--- NOTE | 2020-12-18 05:46 | NUR ---
I have reviewed this patient and I concur with the Shift Assessment completed by the Licensed Practical Nurse today this shift.
--- NOTE | 2020-12-18 07:10 | NUR ---
Lying in bed, awake/alert/oriented, T/R self ad keith, cont of B/B with BSC per self ad keith, denies pain/other discomfort at this time, call light/phone/water within reach, no s/s of acute distress observed.
--- NOTE | 2020-12-18 08:00 | NUR ---
Up to chair at bedside at this time, call light/phone/water within reach, no s/s of acute distress observed.
[2020-12-18 08:01] VITALS: BP 120/77
[2020-12-18 19:24] VITALS: BP 108/76
--- NOTE | 2020-12-18 19:30 | NUR ---
PT IN BED, AAO X 4, RESP EVEN AND UNLABORED, NO DISTRESS NOTED, CL IN REACH SR UP X 2.
[2020-12-18 23:28] VITALS: BP 112/64
--- NOTE | 2020-12-19 03:41 | NUR ---
I have reviewed this patient and I concur with the Shift Assessment completed by the Licensed Practical Nurse today this shift.
[2020-12-19 04:50] VITALS: BP 104/68
--- NOTE | 2020-12-19 07:20 | NUR ---
Lying in bed, awake/alert/oriented, T/R self ad keith, cont of B/B with BRPs per self ad keith, denies pain/other discomfort at this time, call light/phone/water within reach, no s/s of acute distress observed.
[2020-12-19 08:25] VITALS: BP 129/84
[2020-12-19 12:23] VITALS: BP 93/72
--- NOTE | 2020-12-19 13:39 | NUR ---
Off unit for procedure
[2020-12-19 13:43] LABS: BASOPHILS 0 % (0-2); EOSINOPHILS 1.8 % (0-7); HEMATOCRIT 37.8 % (42.0-54.0); IMMATURE GRANULOCYTES 0.4 % (0-5); LYMPHOCYTE ABS# 1.21 10x3/uL (1.32-3.57); LYMPHOCYTES 22.1 % (15-50); MCHC 31.7 g/dL (31.0-37.0); MCV 85.1 fL (80.0-100.0); MONOCYTES 5.5 % (2-11); NEUTROPHIL ABS# 3.84 10x3/uL (1.78-5.38); NEUTROPHILS 70.2 % (40-80); PLATELET COUNT 212 10x3/uL (130-400); RBC 4.44 10x6/uL (4.20-6.10); RDW 16.3 % (11.5-14.5); WBC 5.5 10x3/uL (4.8-10.8)
[2020-12-19 14:06] LABS: CALCIUM 8.5 mg/dL (8.5-10.1); CARBON DIOXIDE 23.6 mmol/L (21.0-32.0); CREATININE - SERUM 1.1 mg/dL (0.6-1.3); LDL-HDL RATIO 2.3 ratio (1.5-3.5); POTASSIUM - SERUM 3.6 mmol/L (3.5-5.1)
--- NOTE | 2020-12-19 14:15 | OP ---
PATIENT NAME: RAHUL ENGLE JR MEDICAL RECORD: [id number] :58 LOCATION:D. D.2111 ADMISSION DATE:12/16/20 SURGEON: ALANIS SANDS MD DATE OF OPERATION: 12/17/2020 PROCEDURE: Left heart catheterization, selective coronary angiography, plus PTCA stenting of the LAD. FINDINGS: Left ventriculography in 30-degree PINO view shows severe global hypokinesis, EF 15%. LVEDP is elevated at 25-30. CORONARY ANATOMY: Left main: Free of disease. LAD: Has multiple areas of stenosis, most severe distally at 80% and proximally more diffuse at 80% to 90%. Ramus: There is true ramus branch with an ostial stenosis of 80% and a mid stenosis of 80%. Circumflex: Codominant system with the circumflex has a small OM with disease but circumflex itself is widely patent. Right coronary artery: Totally occluded and fills via left to right collaterals. PLAN: Intervention of the LAD momentarily. DESCRIPTION: Using the indwelling sheath, an XB LAD guiding catheter provided excellent guide catheter support followed by 300 cm BMW wire. Stents deployed were a 3.0 x 12, 3.0 x 22, 3.5 x 18, and 3.5 x 22, all taken up to 14 atmospheres for 45 seconds. Final angiography shows severe diffuse stenosis of the LAD, no significant residual. KELLEN flow was 3 throughout the procedure. Heparin and Integrilin were used during the case. Plavix was loaded in the lab. Sheath closed with TR band. PLAN: Intervention to the ramus at a later date; however, given a creatinine of 1.5 and large contrast load, would like for this to washout first due to renal insufficiency. TRANSINT:[id number] Voice Confirmation ID: [id number] DOCUMENT ID: [id number] ALANIS SANDS MD at 1410 CC: [id number] DICTATION DATE: 12/17/20 1436 HOSE TENDER: 12/17/20 2350 ADM IN [place] [id number] [place] [address]
--- NOTE | 2020-12-19 14:45 | NUR ---
Returned from chemical lab technician after 2 stents placed in Ramus through Rt femoral vein, 6F exoseal used to close and pt must stay flat x 4 hrs.
[2020-12-19 16:30] VITALS: BP 93/72
--- NOTE | 2020-12-19 19:30 | NUR ---
PT IN BED, EYES CLOSED, RESP EVEN AND UNLABORED, NO DISTRESS NOTED, CL IN REACH, SR UP X 2.
[2020-12-19 19:45] VITALS: BP 122/90
[2020-12-20 01:11] VITALS: BP 108/75
[2020-12-20 04:59] VITALS: BP 112/83
--- NOTE | 2020-12-20 06:18 | NUR ---
I have reviewed this patient and I concur with the Shift Assessment completed by the Licensed Practical Nurse today this shift.
--- NOTE | 2020-12-20 07:10 | NUR ---
Lying in bed, awake/alert/oriented, T/R self ad keith, cont of B/B with BRPs with assist ad keith, denies pain/other discomfort at this time, call light/phone/water within reach, no s/s of acute distress observed.
[2020-12-20 08:03] VITALS: BP 118/86
[2020-12-20 08:15] VITALS: BP 118/86
[2020-12-20] MEDS ORDERED: ALDACTONE25 MG PO (08:55)
[2020-12-20] MEDS ORDERED: COZAAR50 MG PO (08:55)
[2020-12-20] MEDS ORDERED: PLAVIX75 MG PO (08:55)
[2020-12-20] MEDS ORDERED: LANOXIN125 MCG PO (08:55)
[2020-12-20] MEDS ORDERED: BAYER CHEWABLE81 MG PO (08:56)
--- NOTE | 2020-12-20 09:22 | MORECARE ---
CASE MANAGEMENT DISCHARGE SUMMARY PATIENT: RAHUL ENGLE JR UNIT: [id number] ADM DATE: 12/16/20 AGE: 60 : 58 SEX: M ROOM/BED: D.7162 AUTHOR: CHERYLE,DOC PHYSICIAN: REFERRING PHYSICIAN: KOREY LOPES MD DATE OF SERVICE: 12/20/20 Case Management Discharge Planning Summary DCP REVIEW SUMMARY ANTICIPATED D/C DATE: EXPECTED LOS : CASE STATUS: DCP Initiated INITIAL REVIEW: 12/20/2020 INITIAL REVIEWER: Lola Rendon FINAL DISCHARGE DISPOSITION: : FINAL REVIEWER: FINAL REVIEW DATE: LACE: UPDATED BY: [id number]: Kim Bird on 12/16/20 14:55 CT QUESTION: ANSWER Length of Stay (Prior Admit): 3 Days Acute Admission: Inpatient Comorbidity: (2PTS) Mld Liver DZ, DM W/End Organ Damage, CHF, COPD, CA, Leuk, Lympho, Any Tumor, Mod to Sev Renal Comorbidity Total Score 2 PT Emergency Room visits during previous 6 months: 2 Visits DCP Focus Questions & Answers DCP Screen QUESTION: ANSWER High Risk Factors: : Decreased adherence to treatment plan DCP Evaluation QUESTION: ANSWER Patient and/or caregiver agree upon recommended discharge plan? : Yes Patient's current cognitive status: : *Oriented to person, place, situation, time and present Patient's ability to cope with chronic illness : a. Adequate (0-3 ED visits in 6 mos., adequate financial resources, attends scheduled appts.) Patient gives permission to discuss discharge plans with: (name, relationship and number) : Vijaya Whittaker - life partner - [phone] Family / Caregiver's ability to cope with chronic illness: : a. Adequate (ability to meet patient's medical needs, ensures patient attends medical appts.) Does the patient have the ability to pay for or attain post discharge needs / services? : Yes Family / Caregiver's ability to cope with chronic illness: : a. Adequate (ability to meet patient's medical needs, ensures patient attends medical appts.) Physical Status: : Independent with ADL's Equipment needed for post hospitalization: : None Is there a likelihood that the patient will require additional services to return to the preadmission environment? : No Living Arrangements: : Home with Spouse/Significant Other Results of this evaluation have been discussed with: : Patient Patient with capacity for self-care or can be cared for in same environment as prior to hospitalization? : Yes Baseline cognitive status: : *Oriented to person, place, situation, time and present Physical environment modification needed / anticipated for discharge: : No Preadmission facility can/cannot provide post hospital level of care needs: : Can - at same level of care as preadmission Medication Management: : Patient states can afford medications Planned post hospital services available for patient? : Yes Pharmacy name(s): : [facility] Planned post hospital services covered by insurance plan? : Yes Does Patient have transportation to get home and to follow-up medical appointments when discharged from the hospital? : Yes Comments: : States will call an Uber to go home Would patient like to participate in any Care Coordination programs (if applicable): : Not applicable Other Care Coordination programs/comments: : Cardiac Rehab Does the patient have electricity at home? : Yes Does the patient have running water in their house? : Yes Equipment in use: : None Mental health screen: : No mental health history Psychosocial status: : Adult with physical limitations Psychosocial other comments: : States "no energy" Patient has EF of 20-25% with CAD Abuse/Neglect: : None Resources / Services in place: : None DCP Re-evaluation QUESTION: ANSWER Would patient like to participate in any Care Coordination programs (if applicable): : Not applicable PATIENT: RAHUL ENGLE ENCOUNTER: [id number] MEDICAL RECORD#: [id number] ADMISSION DATE: 12/16/2020 DISCHARGE DATE: ATTENDING MD: KOREY MARIN : AGE: 60 MARITAL STATUS: S DC PLAN ID: [id number] FACILITY: [facility] PRINTED ON: 12/20/20 9:22 CT All edits/amendments must be made on the electronic document DICTATION DATE: 12/20/20921 WALL TAPER: NEY 12/20/20921 RPT#: [id number] DC DATE: STATUS: ADM IN [facility] [address] [place] [address] END OF REPORT
--- NOTE | 2020-12-20 09:34 | MORECARE ---
CASE MANAGEMENT DISCHARGE SUMMARY PATIENT: RAHUL ENGLE JR UNIT: [id number] ADM DATE: 12/16/20 AGE: 60 : 58 SEX: M ROOM/BED: D.2112 AUTHOR: CHERYLE,DOC PHYSICIAN: REFERRING PHYSICIAN: KOREY LOPES MD DATE OF SERVICE: 12/20/20 Case Management Discharge Planning Summary COMMENTS ENTERED DATE: 12/20/20 9:17 CT COMMENT TYPE: Discharge Planning REVIEWER: Lola Rendon DC PLAN: Home ANTICIPATED DC NEEDS: Cardiac Rehab CM met with patient to complete initial dc planning assessment. CM educated patient on the CM role and verbal consent given by patient to complete assessment. CM verified patient's address, phone number, and emergency contact phone numbers. Patient lives at home with his significant other, Vijaya Whittaker. At discharge patient plans to return and feels this is a safe discharge. CM discussed availability of home health, rehab services, and medical equipment. Patient denied known discharge needs at this time. He states he is [facility] [employer]. States he does not have a PCP because he has been healthy until now. I provided him the number to [employer], physician referral guide and the number to Connect Care for a Medicaid doctor. He states he also has VA, but has not signed up for VA benefits. I provided him the number to the VA. There is a consult for cardiac rehab. I called Rosana Qiu and she states she will call him the beginning of next week. Patient is agreeable to cardiac rehab. Patient states he will call an UBER for his ride home. I have asked RT for a walk test to assess for home oxygen needs. CM will continue to follow and will assist as needed with dc plans/needs. DCP REVIEW SUMMARY ANTICIPATED D/C DATE: EXPECTED LOS : CASE STATUS: DCP Initiated INITIAL REVIEW: 12/20/2020 INITIAL REVIEWER: Lola Rendon FINAL DISCHARGE DISPOSITION: : FINAL REVIEWER: FINAL REVIEW DATE: LACE: UPDATED BY: [id number]: Kim Bird on 12/16/20 14:55 CT QUESTION: ANSWER Length of Stay (Prior Admit): 3 Days Acute Admission: Inpatient Comorbidity: (2PTS) Mld Liver DZ, DM W/End Organ Damage, CHF, COPD, CA, Leuk, Lympho, Any Tumor, Mod to Sev Renal Comorbidity Total Score 2 PT Emergency Room visits during previous 6 months: 2 Visits DCP Focus Questions & Answers DCP Screen QUESTION: ANSWER High Risk Factors: : Decreased adherence to treatment plan DCP Evaluation QUESTION: ANSWER Patient and/or caregiver agree upon recommended discharge plan? : Yes Patient's current cognitive status: : *Oriented to person, place, situation, time and present Patient's ability to cope with chronic illness : a. Adequate (0-3 ED visits in 6 mos., adequate financial resources, attends scheduled appts.) Patient gives permission to discuss discharge plans with: (name, relationship and number) : Vijaya Whittaker - life partner - [phone] Family / Caregiver's ability to cope with chronic illness: : a. Adequate (ability to meet patient's medical needs, ensures patient attends medical appts.) Does the patient have the ability to pay for or attain post discharge needs / services? : Yes Family / Caregiver's ability to cope with chronic illness: : a. Adequate (ability to meet patient's medical needs, ensures patient attends medical appts.) Physical Status: : Independent with ADL's Equipment needed for post hospitalization: : None Is there a likelihood that the patient will require additional services to return to the preadmission environment? : No Living Arrangements: : Home with Spouse/Significant Other Results of this evaluation have been discussed with: : Patient Patient with capacity for self-care or can be cared for in same environment as prior to hospitalization? : Yes Baseline cognitive status: : *Oriented to person, place, situation, time and present Physical environment modification needed / anticipated for discharge: : No Preadmission facility can/cannot provide post hospital level of care needs: : Can - at same level of care as preadmission Medication Management: : Patient states can afford medications Planned post hospital services available for patient? : Yes Pharmacy name(s): : [facility] Planned post hospital services covered by insurance plan? : Yes Does Patient have transportation to get home and to follow-up medical appointments when discharged from the hospital? : Yes Comments: : States will call an Uber to go home Would patient like to participate in any Care Coordination programs (if applicable): : Not applicable Other Care Coordination programs/comments: : Cardiac Rehab Does the patient have electricity at home? : Yes Does the patient have running water in their house? : Yes Equipment in use: : None Mental health screen: : No mental health history Psychosocial status: : Adult with physical limitations Psychosocial other comments: : States "no energy" Patient has EF of 20-25% with CAD Abuse/Neglect: : None Resources / Services in place: : None DCP Re-evaluation QUESTION: ANSWER Would patient like to participate in any Care Coordination programs (if applicable): : Not applicable PATIENT: RAHUL ENGLE ENCOUNTER: [id number] MEDICAL RECORD#: [id number] ADMISSION DATE: 12/16/2020 DISCHARGE DATE: ATTENDING MD: KOREY MARIN : AGE: 60 MARITAL STATUS: S DC PLAN ID: [id number] FACILITY: [facility] PRINTED ON: 12/20/20 9:34 CT All edits/amendments must be made on the electronic document DICTATION DATE: 12/20/20933 INTAKE NURSE: NEY 12/20/20933 RPT#: [id number] DC DATE: STATUS: ADM IN [facility] [address] [place] [address] END OF REPORT
--- NOTE | 2020-12-20 09:45 | NUR ---
Provided written/verbal discharge instructions/education to which pt voiced understanding after asking appropriate questions, cardiac telemetry monitoring discontinued, no s/s of acute distress observed.
--- NOTE | 2020-12-20 09:45 | NUR ---
Saw Patient regarding Outpatient Cardiac Rehab. Will get patient scheduled for December 25 @ 9 am. Gave patient a booklet on Cardiac Rehab with my information on it and told him to call if he had any questions.
--- NOTE | 2020-12-20 10:10 | MORECARE ---
CASE MANAGEMENT DISCHARGE SUMMARY PATIENT: RAHUL ENGLE JR UNIT: [id number] ADM DATE: 12/16/20 AGE: 60 : 58 SEX: M ROOM/BED: D.2112 AUTHOR: CHERYLE,DOC PHYSICIAN: REFERRING PHYSICIAN: KOREY LOPES MD DATE OF SERVICE: 12/20/20 Case Management Discharge Planning Summary COMMENTS ENTERED DATE: 12/20/20 9:59 CT COMMENT TYPE: Discharge Planning REVIEWER: Lola Rendon Oxygen saturation on room air is 98% at rest and 96% with exertion. He does not qualify for home oxygen at this time. His Cardiac rehab is set up for Wednesday. He has all information for this. ENTERED DATE: 12/20/20 9:17 CT COMMENT TYPE: Discharge Planning REVIEWER: Lola Rendon DC PLAN: Home ANTICIPATED DC NEEDS: Cardiac Rehab CM met with patient to complete initial dc planning assessment. CM educated patient on the CM role and verbal consent given by patient to complete assessment. CM verified patient's address, phone number, and emergency contact phone numbers. Patient lives at home with his significant other, Vijaya Whittaker. At discharge patient plans to return and feels this is a safe discharge. CM discussed availability of home health, rehab services, and medical equipment. Patient denied known discharge needs at this time. He states he is able to get his medicines at [facility] pharmacy by [facility]. States he does not have a PCP because he has been healthy until now. I provided him the number to [employer], physician referral guide and the number to Connect Care for a Medicaid doctor. He states he also has VA, but has not signed up for VA benefits. I provided him the number to the VA. There is a consult for cardiac rehab. I called Rosana Qiu and she states she will call him the beginning of next week. Patient is agreeable to cardiac rehab. Patient states he will call an UBER for his ride home. I have asked RT for a walk test to assess for home oxygen needs. CM will continue to follow and will assist as needed with dc plans/needs. DCP REVIEW SUMMARY ANTICIPATED D/C DATE: EXPECTED LOS : CASE STATUS: DCP Initiated INITIAL REVIEW: 12/20/2020 INITIAL REVIEWER: Lola Rendon FINAL DISCHARGE DISPOSITION: : FINAL REVIEWER: FINAL REVIEW DATE: LACE: UPDATED BY: [id number]: Kim Pelon on 12/16/20 14:55 CT QUESTION: ANSWER Length of Stay (Prior Admit): 3 Days Acute Admission: Inpatient Comorbidity: (2PTS) Mld Liver DZ, DM W/End Organ Damage, CHF, COPD, CA, Leuk, Lympho, Any Tumor, Mod to Sev Renal Comorbidity Total Score 2 PT Emergency Room visits during previous 6 months: 2 Visits DCP Focus Questions & Answers DCP Screen QUESTION: ANSWER High Risk Factors: : Decreased adherence to treatment plan DCP Evaluation QUESTION: ANSWER Patient and/or caregiver agree upon recommended discharge plan? : Yes Patient's current cognitive status: : *Oriented to person, place, situation, time and present Patient's ability to cope with chronic illness : a. Adequate (0-3 ED visits in 6 mos., adequate financial resources, attends scheduled appts.) Patient gives permission to discuss discharge plans with: (name, relationship and number) : Vijaya Whittaker - [facility] partner - [phone] Family / Caregiver's ability to cope with chronic illness: : a. Adequate (ability to meet patient's medical needs, ensures patient attends medical appts.) Does the patient have the ability to pay for or attain post discharge needs / services? : Yes Family / Caregiver's ability to cope with chronic illness: : a. Adequate (ability to meet patient's medical needs, ensures patient attends medical appts.) Physical Status: : Independent with ADL's Equipment needed for post hospitalization: : None Is there a likelihood that the patient will require additional services to return to the preadmission environment? : No Living Arrangements: : Home with Spouse/Significant Other Results of this evaluation have been discussed with: : Patient Patient with capacity for self-care or can be cared for in same environment as prior to hospitalization? : Yes Baseline cognitive status: : *Oriented to person, place, situation, time and present Physical environment modification needed / anticipated for discharge: : No Preadmission facility can/cannot provide post hospital level of care needs: : Can - at same level of care as preadmission Medication Management: : Patient states can afford medications Planned post hospital services available for patient? : Yes Pharmacy name(s): : [facility] Planned post hospital services covered by insurance plan? : Yes Does Patient have transportation to get home and to follow-up medical appointments when discharged from the hospital? : Yes Comments: : States will call an Uber to go home Would patient like to participate in any Care Coordination programs (if applicable): : Not applicable Other Care Coordination programs/comments: : Cardiac Rehab Does the patient have electricity at home? : Yes Does the patient have running water in their house? : Yes Equipment in use: : None Mental health screen: : No mental health history Psychosocial status: : Adult with physical limitations Psychosocial other comments: : States "no energy" Patient has EF of 20-25% with CAD Abuse/Neglect: : None Resources / Services in place: : None DCP Re-evaluation QUESTION: ANSWER Would patient like to participate in any Care Coordination programs (if applicable): : Not applicable PATIENT: RAHUL ENGLE ENCOUNTER: [id number] MEDICAL RECORD#: [id number] ADMISSION DATE: 12/16/2020 DISCHARGE DATE: ATTENDING MD: KOREY MARIN : AGE: 60 MARITAL STATUS: S DC PLAN ID: [id number] FACILITY: [facility] PRINTED ON: 12/20/20 10:10 CT All edits/amendments must be made on the electronic document DICTATION DATE: 12/20/20 1010 DIRECTOR METABOLISM: NEY 12/20/20 1010 RPT#: [id number] DC DATE: STATUS: ADM IN [facility] [address] [place] [address] END OF REPORT
[2020-12-20 11:47] VITALS: BP 118/86
--- NOTE | 2020-12-20 12:21 | NUR ---
Discharged home to self care via w/c in stable condition accompanied by hospital staff, no s/s of acute distress observed.
--- NOTE | 2020-12-22 17:21 | MORECARE ---
CASE MANAGEMENT DISCHARGE SUMMARY PATIENT: RAHUL ENGLE JR UNIT: [id number] ADM DATE: 12/16/20 AGE: 60 : 58 SEX: M ROOM/BED: D.2112 AUTHOR: CHERYLE,DOC PHYSICIAN: REFERRING PHYSICIAN: KOREY LOPES MD DATE OF SERVICE: 12/22/20 Case Management Discharge Planning Summary COMMENTS ENTERED DATE: 12/20/20 9:59 CT COMMENT TYPE: Discharge Planning REVIEWER: Lola Rendon Oxygen saturation on room air is 98% at rest and 96% with exertion. He does not qualify for home oxygen at this time. His Cardiac rehab is set up for Wednesday. He has all information for this. ENTERED DATE: 12/20/20 9:17 CT COMMENT TYPE: Discharge Planning REVIEWER: Lola Rendon DC PLAN: Home ANTICIPATED DC NEEDS: Cardiac Rehab CM met with patient to complete initial dc planning assessment. CM educated patient on the CM role and verbal consent given by patient to complete assessment. CM verified patient's address, phone number, and emergency contact phone numbers. Patient lives at home with his significant other, Vijaya Whittaker. At discharge patient plans to return and feels this is a safe discharge. CM discussed availability of home health, rehab services, and medical equipment. Patient denied known discharge needs at this time. He states he is able to get his medicines at [facility] pharmacy by [facility]. States he does not have a PCP because he has been healthy until now. I provided him the number to [employer], physician referral guide and the number to Connect Care for a Medicaid doctor. He states he also has VA, but has not signed up for VA benefits. I provided him the number to the VA. There is a consult for cardiac rehab. I called Rosana Qiu and she states she will call him the beginning of next week. Patient is agreeable to cardiac rehab. Patient states he will call an UBER for his ride home. I have asked RT for a walk test to assess for home oxygen needs. CM will continue to follow and will assist as needed with dc plans/needs. DCP REVIEW SUMMARY ANTICIPATED D/C DATE: EXPECTED LOS : 0 CASE STATUS: DCP Complete INITIAL REVIEW: 12/20/2020 INITIAL REVIEWER: Lola Rendon FINAL DISCHARGE DISPOSITION: 01 : Home or Self Care (Routine Discharge) FINAL REVIEWER: Lola Rendon FINAL REVIEW DATE: 12/22/2020 LACE: UPDATED BY: [id number]: Kim Bird on 12/16/20 14:55 CT QUESTION: ANSWER Length of Stay (Prior Admit): 3 Days Acute Admission: Inpatient Comorbidity: (2PTS) Mld Liver DZ, DM W/End Organ Damage, CHF, COPD, CA, Leuk, Lympho, Any Tumor, Mod to Sev Renal Comorbidity Total Score 2 PT Emergency Room visits during previous 6 months: 2 Visits DCP Focus Questions & Answers DCP Screen QUESTION: ANSWER High Risk Factors: : Decreased adherence to treatment plan DCP Evaluation QUESTION: ANSWER Family / Caregiver's ability to cope with chronic illness: : a. Adequate (ability to meet patient's medical needs, ensures patient attends medical appts.) Patient gives permission to discuss discharge plans with: (name, relationship and number) : Vijaya Whittaker [facility] partner - [phone] Patient's ability to cope with chronic illness : a. Adequate (0-3 ED visits in 6 mos., adequate financial resources, attends scheduled appts.) Patient's current cognitive status: : *Oriented to person, place, situation, time and present Patient and/or caregiver agree upon recommended discharge plan? : Yes Physical Status: : Independent with ADL's Family / Caregiver's ability to cope with chronic illness: : a. Adequate (ability to meet patient's medical needs, ensures patient attends medical appts.) Does the patient have the ability to pay for or attain post discharge needs / services? : Yes Living Arrangements: : Home with Spouse/Significant Other Is there a likelihood that the patient will require additional services to return to the preadmission environment? : No Equipment needed for post hospitalization: : None Baseline cognitive status: : *Oriented to person, place, situation, time and present Patient with capacity for self-care or can be cared for in same environment as prior to hospitalization? : Yes Results of this evaluation have been discussed with: : Patient Preadmission facility can/cannot provide post hospital level of care needs: : Can - at same level of care as preadmission Physical environment modification needed / anticipated for discharge: : No Medication Management: : Patient states can afford medications Pharmacy name(s): : [facility] Planned post hospital services available for patient? : Yes Does Patient have transportation to get home and to follow-up medical appointments when discharged from the hospital? : Yes Planned post hospital services covered by insurance plan? : Yes Would patient like to participate in any Care Coordination programs (if applicable): : Not applicable Comments: : States will call an Uber to go home Does the patient have electricity at home? : Yes Other Care Coordination programs/comments: : Cardiac Rehab Does the patient have running water in their house? : Yes Equipment in use: : None Mental health screen: : No mental health history Psychosocial status: : Adult with physical limitations Psychosocial other comments: : States "no energy" Patient has EF of 20-25% with CAD Abuse/Neglect: : None Resources / Services in place: : None DCP Re-evaluation QUESTION: ANSWER Would patient like to participate in any Care Coordination programs (if applicable): : Not applicable PATIENT: RAHUL ENGLE ENCOUNTER: [id number] MEDICAL RECORD#: [id number] ADMISSION DATE: 12/16/2020 DISCHARGE DATE: 12/20/2020 ATTENDING MD: KOREY MARIN : AGE: 60 MARITAL STATUS: S DC PLAN ID: [id number] FACILITY: [facility] PRINTED ON: 12/22/20 17:21 CT All edits/amendments must be made on the electronic document DICTATION DATE: 12/22/201720 SCALLOP CUTTER MACHINE: NEY 12/22/201720 RPT#: [id number] DC DATE:12/20/20 STATUS: DIS IN [facility] [address] [place] [address] END OF REPORT
== END 2020-12-20 12:21 | disposition home or self-care (01) | DRG 246 ==
LOC: D.ER 06:08 → D.M2 07:19 → D.ICU 07:19 → D.M2 12-17 11:17
PROVIDERS: Family Medicine; Internal Medicine Interventional Cardiology; ADMIT Family Medicine; ATTEND Family Medicine
PROC: B2111ZZ Fluoroscopy of Multiple Coronary Arteries using Low Osmolar Contrast (ICD-10-PCS; 2020-12-17)
PROC: B2151ZZ Fluoroscopy of Left Heart using Low Osmolar Contrast (ICD-10-PCS; 2020-12-17)
PROC: 027037Z Dilation of Coronary Artery, One Artery with Four or More Drug-eluting Intraluminal Devices, Percutaneous Approach (ICD-10-PCS; principal; 2020-12-17 14:00)
PROC: 4A023N7 Measurement of Cardiac Sampling and Pressure, Left Heart, Percutaneous Approach (ICD-10-PCS; 2020-12-17 14:00)
DX: I21.4 Non-ST elevation (NSTEMI) myocardial infarction (principal); I50.21 Acute systolic (congestive) heart failure; J96.00 Acute respiratory failure, unspecified whether with hypoxia or hypercapnia; I42.9 Cardiomyopathy, unspecified; I48.0 Paroxysmal atrial fibrillation; I95.9 Hypotension, unspecified; I11.0 Hypertensive heart disease with heart failure; I25.10 Atherosclerotic heart disease of native coronary artery without angina pectoris

== ENCOUNTER → 2021-01-22 09:43 | Outpatient (CLI) | payer MEDICAID ==
[2020-12-17 12:24] VITALS: BMI 24.9
--- NOTE | ~2021-01-22 | EC ---
PATIENT:RAHUL ENGLE JR DATE OF SERVICE: 01/22/21 SEX: M MEDICAL RECORD: [id number] DATE OF : 58 LOCATION:[facility] AGE OF PATIENT: 60 ADMISSION DATE: 01/22/21 REFERRING PHYSICIAN: INTERPRETING PHYSICIAN: ALANIS SANDS MD ECHOCARDIOGRAM REPORT ECHO CHARGES 4 ECHO COMPLETE Date: 01/22/21 CLINICAL DIAGNOSIS: CAD/CARDIOMYOPATHY ASSESS EF ECHOCARDIOGRAPHIC MEASUREMENTS (adult normal given) AC root (d.<3.7cm) 3.6 cm LV Septum d (<1.2 cm> 1.2 cm Valve Excursion 1.7 cm LV Septum (systole) 1.3 cm Left Atria (s.<4.0cm> 5.0 cm LVPW d(<1.2cm) 1.3 cm RV (d.<2.3cm) 5.1 cm LVPW (sytole) 1.4 cm LV diastole(<5.6CM) 7.0 cm MV E-F(>70mm/sec) cm LV systole 6.3 cm LVOT Diameter 2.5 cm MV exc.(>10mm) 1.6 cm Est.ejection fraction (50-75%) % DOPPLER: LVIT cm/sec A 56.0 cm/sec E 116.0 cm/sec LA cm/sec RVSP 31 mmHg LVOT 83 cm/sec AOP1/2T 500 m/s Asc. Ao 115 cm/sec RVOT 45 cm/sec RA cm/sec PA 84 cm/sec AV Gradient Peak 5.32 mmHg AV Mean 2.91 mmHg AV Area 3.6 cm MV Gradient Peak 5.84 mmHg MV Mean 2.29 mmHg MV Area cm COMMENTS: Movie Machine Operator: 2 CORBIN TORRES Knitting Machine Tender: 3 Dr. Calloway TAPE# PACS Pericardial Effusion N DATE OF SERVICE: Adequate 2D, color-flow imaging, spectral Doppler, and M-Mode FINDINGS: Mild LVH. LV internal dimension is dilated. LV is globally hypokinetic with reduced EF, estimated EF 20% to 25%. Aortic valve is sclerosed without evidence of stenosis by Doppler interrogation. There is mild AI by color-flow imaging. Left atrium is dilated at 5 cm. Mitral valve shows no prolapse. Mild MR. Right-sided chambers are grossly normal. Moderate TR. RV systolic pressure is estimated at greater than or equal to 31 mmHg via the ECHOCARDIOGRAM REPORT [id number] RAHUL ENGLE JR continuity equation. TRANSINT:[id number] Voice Confirmation ID: [id number] DOCUMENT ID: [id number] AALNIS SANDS MD CC: [id number] DICTATION DATE: 01/23/21840 SUPERVISOR [employer]INTING [employer] STAMPING: 01/23/21 1200 DEP CLI 01/22/21 [facility] [address] [place] [id number]
[~2021-01-22 09:43] MED LIST changes: +ALDACTONE25 MG PO; +BAYER CHEWABLE81 MG PO; +COZAAR50 MG PO; +LANOXIN125 MCG PO; +PLAVIX75 MG PO
== END | disposition home or self-care (01) ==
LOC: D.HCCECHO 09:43
PROVIDERS: ATTEND Internal Medicine Interventional Cardiology
DX: I25.10 Atherosclerotic heart disease of native coronary artery without angina pectoris (principal)